=== PATIENT | male | born 1960 | race African-American/Black ===

== ENCOUNTER 2021-11-25 10:06 | Day surgery (SDC) | payer MEDICAID ==
[2021-11-19 14:54] VITALS: BMI 25.4
[2021-11-25] MEDS ORDERED: Lidocaine 1% MPF 2 ML VIAL ONE (10:40)
[2021-11-25] MEDS ORDERED: PROPOFOL 0 ML ONE (11:33)
[2021-11-25] MEDS ORDERED: Lidocaine 2% MPF 10 ML AMP (For Epidural Use) ONE (11:33)
[2021-11-25] MEDS ORDERED: PROPOFOL 20 ML ONE ×2 (11:40)
== END 2021-11-25 12:26 | disposition home or self-care (01) ==
LOC: CSHSDC 10:06
PROVIDERS: ATTEND Internal Medicine Gastroenterology
PROC: 0DJD8ZZ Inspection of Lower Intestinal Tract, Via Natural or Artificial Opening Endoscopic (ICD-10-PCS; principal; 2021-11-25)
DX: K62.5 Hemorrhage of anus and rectum (principal); Z86.010 Personal history of colon polyps; K57.30 Diverticulosis of large intestine without perforation or abscess without bleeding; K64.9 Unspecified hemorrhoids; K90.0 Celiac disease; E78.5 Hyperlipidemia, unspecified; Z85.46 Personal history of malignant neoplasm of prostate
CPT/HCPCS: J2704